=== PATIENT | female | born 1985 | race Caucasian/White ===

== ENCOUNTER 2016-12-12 09:00 | Emergency (ER) | payer OTHER ==
[~2016-12-12] VITALS: Ht 167.6 cm; Wt 59.8 kg
[~2016-12-12 09:00] MED LIST: ONDA4TAB10 SL
[2016-12-12 09:09] VITALS: TEMP 36.7; Ht 167.6 cm; Wt 59.8 kg
--- NOTE | 2016-12-12 10:54 | DIAGNOSTIC IMAGING REPORT ---
CERVICAL SPINE CT CT DOSE: 138.97 mGy.cm HISTORY: Neck pain w/ radiculopathy TECHNIQUE: Multiaxial CT images of the cervical spine were performed and reformatted in the sagittal and coronal plane without the use of contrast. COMPARISON: None. FINDINGS: Mild dextroscoliosis. This could be positional. No pneumothorax. Prevertebral soft tissues and the C1-C2 interval are intact. Reversal of the normal lordotic curvature. Mild disc space narrowing at C4-C5 and C5-C6 with tiny endplate osteophytes. Tiny ossific density anterior to the C6 inferior endplate is likely chronic. Suboptimal evaluation of the central canal due to the CT technique. There appears to be small broad-based posterior disc bulge at C4-C5 without significant central canal narrowing. There is also small broad-based posterior disc bulge at C5-C6 with a small left paracentral focal disc protrusion. This likely results in mild left-sided central canal narrowing. There is also also mild left-sided neural foraminal narrowing at this level. IMPRESSION: 1. No fractures within the cervical spine. 2. Reversal of the normal lordotic curvature. 3. Mild dextroscoliosis. 4. Degenerative changes at C4-C5 and C5-C6 as described above. Electronically signed by: Chong Ny M.D. 12/12/2016 10:53 AM Dictated Date/Time: 12/12/2016 10:47 AM
[2016-12-12 11:20] VITALS: BP 109/92; PULSE 90; O2SAT 98
[2016-12-12] MEDS ORDERED: CYCL10TA6 PO (12:08)
--- NOTE | 2016-12-12 12:35 | EMERGENCY ROOM VISIT NOTE ---
History First contact with patient: 09:28 Chief Complaint: NECK PAIN Stated Complaint: NECK PAIN,FATIGUE,MIGRAINES, SHOULDER AND BACK KAYLA History of Present Illness The patient is a 31 year old female who presents to the Emergency Room with complaints of intermittently and chronic neck pain. The patient reports that she also has a headache, fatigue and upper shoulder/back pain. The patient reports a prior history of Lyme's disease. However, she has had neck pain for a long period of time. She has not contacted her family doctor regarding her current symptoms. She denies any fevers or chills, blurred vision or headaches. She does occasionally have visual disturbances. She did have a recent MRI of the brain that was normal. She denies any recent trauma to her neck, and rates her discomfort a 6 out of 10. Review of Systems 10 system review was performed and was negative except for pertinent positives and negatives as indicated in history of present illness Past Medical/Surgical History Medical Problems: (1) Anxiety (2) Closed head injury (3) Foot pain (4) Hx of Lyme disease (5) Pelvic pain (6) PTSD (post-traumatic stress disorder) Family History Cancer Diabetes mellitus Social History Smoking Status: Never Smoker Alcohol Use: none Drug Use: none Marital Status: single Housing Status: lives with family Occupation Status: employed Current/Historical Medications Scheduled PRN Cyclobenzaprine Hcl (Flexeril), 10 MG PO TID PRN for spasm Allergies Coded Allergies: POLLEN (Unverified Allergy, Intermediate, RUNNY NOSE, ITCHY EYES, SNEEZING , 12/12/16) Doxycycline (Verified Allergy, Unknown, vomiting, 12/12/16) Physical Exam Vital Signs Date Time Temp Pulse Resp B/P Pulse Ox O2 Delivery O2 Flow Rate FiO2 12/12/16 11:20 90 16 109/92 98 Room Air 12/12/16 09:09 36.7 100 18 126/86 97 Room Air Physical Exam CONSTITUTIONAL: Healthy and well nourished. Alert and oriented X 3 with positive affect. Patient does not appear in any acute distress. HEENT: Normocephalic, atraumatic. Pupils equal, round and reactive. Ears and nares are clear. No rhinorrhea. No scleral icterus or conjunctival injection/ pallor. No subconjunctival hemorrhage. NECK: Examination shows limited range of motion secondary to pain. She has tenderness to palpation through the paraspinous muscles, left worse than right. No JVD or carotid bruits. RESPIRATORY: Clear to auscultation bilaterally with no wheezing, crackles, rhonchi or stridor. CARDIOVASCULAR: Regular rate and rhythm with no murmurs, rubs or gallops. GASTROINTESTINAL: Bowel sounds present in all quadrants. Soft and nontender to palpation. MUSCULOSKELETAL: Examination shows rigidity and tenderness to palpation of the upper trapezius muscles bilaterally, left worse than right. Full range of motion of the shoulders without discomfort. No focal tenderness to palpation through the intrascapular region or central thoracic spine. Equal hand urban anthropologist bilaterally. Distal pulses are intact. INTEGUMENTARY: No rash or other significant dermatologic conditions noted. NEUROLOGIC: Cranial nerves II-XII grossly intact. No focal neurologic deficits noted. Upper extremities are sensory intact. Medical Decision & Procedures ER Provider Diagnostic Interpretation: Noncontrast CT of the neck does not show any acute fractures. She does have mild broad-based disc bulging at C4-5 and C5-6 with a small left paracentral focal disc protrusion at the C5-6 level. Cervical lordosis reversal is also noted. Radiologist report is as follows: CERVICAL SPINE CT CT DOSE: 138.97 mGy.cm HISTORY: Neck pain w/ radiculopathy TECHNIQUE: Multiaxial CT images of the cervical spine were performed and reformatted in the sagittal and coronal plane without the use of contrast. COMPARISON: None. FINDINGS: Mild dextroscoliosis. This could be positional. No pneumothorax. Prevertebral soft tissues and the C1-C2 interval are intact. Reversal of the normal lordotic curvature. Mild disc space narrowing at C4-C5 and C5-C6 with tiny endplate osteophytes. Tiny ossific density anterior to the C6 inferior endplate is likely chronic. Suboptimal evaluation of the central canal due to the CT technique. There appears to be small broad-based posterior disc bulge at C4-C5 without significant central canal narrowing. There is also small broad-based posterior disc bulge at C5-C6 with a small left paracentral focal disc protrusion. This likely results in mild left-sided central canal narrowing. There is also also mild left-sided neural foraminal narrowing at this level. IMPRESSION: 1. No fractures within the cervical spine. 2. Reversal of the normal lordotic curvature. 3. Mild dextroscoliosis. 4. Degenerative changes at C4-C5 and C5-C6 as described above. ED Course Patient history and physical exam were performed. Nurse's notes were reviewed. The patient refused any analgesics while in the emergency department. Noncontrast CT of the neck shows degenerative changes as indicated above, and cervical lordotic reversal. The patient was advised that her neck pain and headache is likely from her neck. I did encourage her to follow-up with her family doctor for further reevaluation, possibly PT referral. The patient was provided a prescription for Flexeril. The patient reports that she does not want any drowsy medications, however would like to take it at nighttime. She was encouraged to perform modalities on the neck, and try to sleep on her back with a soft towel wrapped around the neck for support. She was encouraged to discuss further follow-up of her weakness with her family doctor as well. The patient was happy with plan of care, voiced understanding of all discharge instructions, refused any analgesics while in the emergency department, and rated her pain a 3 out of 10 at the conclusion of my exam. Medical Decision Impression Primary Impression: Neck pain Additional Impression: Cervicogenic headache Departure Information Prescriptions Cyclobenzaprine Hcl (FLEXERIL) 10 Mg Tab 10 MG PO TID Y for spasm, #15 TAB Prov: Jose Roblero PA 12/12/16 Referrals Yannick Fernandez M.D. (PCP) Forms WORK / SCHOOL INSTRUCTIONS, HOME CARE DOCUMENTATION FORM, IMPORTANT VISIT INFORMATION Patient Instructions My [facility] Problem Qualifiers
== END 2016-12-12 12:17 | disposition home or self-care (01) ==
LOC: C.EDB 09:02
DX: M54.2 Cervicalgia (principal); R51 Headache; F41.9 Anxiety disorder, unspecified; Z86.19 Personal history of other infectious and parasitic diseases; Z87.828 Personal history of other (healed) physical injury and trauma; Z88.3 Allergy status to other anti-infective agents; Z91.09 Other allergy status, other than to drugs and biological substances; Z80.9 Family history of malignant neoplasm, unspecified; Z83.3 Family history of diabetes mellitus

== ENCOUNTER 2017-02-02 09:56 | Emergency (ER) | payer OTHER ==
[~2017-02-02] VITALS: Ht 167.6 cm; Wt 60.0 kg
[2017-02-02 10:01] VITALS: TEMP 36.6; Ht 167.6 cm; Wt 60.0 kg
[2017-02-02] MEDS ORDERED: SODIUM CHLORIDE 0.9% 1000ML 1,000 ML IV STA (10:25)
[2017-02-02] MEDS ORDERED: ONDANSETRON INJ 2 MG/ML 2 ML VIAL IV STA ×2 (10:25→11:55)
[2017-02-02] MEDS ORDERED: HYOSCYAMINE SULFATE 0.125 MG SL TAB SL STA (10:25)
[2017-02-02 10:46] LABS: BASO % 0.4 %; BASO ABS # 0.05 K/uL (0-0.2); COMPLETE YES; EOS % 0.5 %; HEMATOCRIT 44.1 % (37-47); IG% 0.3 %; LYMPH % 12.3 %; LYMPH ABS # 1.39 K/uL (1.2-3.4); MEAN CELL VOLUME 86.3 fL (80-100); MEAN CORPUSCULAR HEMOGLOBIN 28.6 pg (25-34); MEAN CORPUSCULAR HGB CONC 33.1 g/dl (32-36); MEAN PLATELET VOLUME 11.4 fL (7.4-10.4); MONO % 5.2 %; NEUT % 81.3 %; PLATELET COUNT 253 K/uL (130-400); RED BLOOD COUNT 5.11 M/uL (4.2-5.4); WHITE BLOOD COUNT 11.26 K/uL (4.8-10.8)
[2017-02-02 11:01] LABS: BUN/CREATININE RATIO 12.6 (10-20); CALCIUM 9.3 mg/dl (8.5-10.1); CREATININE 0.7 mg/dl (0.60-1.20); POTASSIUM 3.3 mmol/L (3.5-5.1)
--- NOTE | 2017-02-02 11:33 | DIAGNOSTIC IMAGING REPORT ---
ABDOMEN 2VIEW W/PA CHEST RTN CLINICAL HISTORY: eval for free air COMPARISON STUDY: No previous studies for comparison. FINDINGS: The soft tissues, psoas shadows, renal outlines and intestinal gas pattern appear normal. There is no evidence for bowel obstruction. There is no evidence for free intraperitoneal air. No abnormal abdominal calcifications are seen. A frontal view of the chest was performed and is unremarkable. IMPRESSION: Normal study. The above report was generated using voice recognition software. It may contain grammatical, syntax or spelling errors. Electronically signed by: Bill Ny M.D. 02/02/2017 11:32 AM Dictated Date/Time: 02/02/2017 11:31 AM
[2017-02-02 12:16] LABS: URINE APPEARANCE CLEAR (CLEAR); URINE BILIRUBIN NEG (NEG); URINE COLOR YELLOW; URINE NITRITE NEG (NEG); URINE PH 6.5 (4.5-7.5); URINE SPECIFIC GRAVITY 1.018 (1.000-1.030); UROBILINOGEN NEG (NEG)
[2017-02-02 12:18] LABS: MANUAL MICROSCOPIC REQUIRED? NO; REVIEW REQ? NO
[2017-02-02] MEDS ORDERED: ONDA4TAB10 SL (12:20)
[2017-02-02 12:33] VITALS: BP 101/74; PULSE 84; O2SAT 99
--- NOTE | 2017-02-02 16:22 | EMERGENCY ROOM VISIT NOTE ---
History Report prepared by Jefry: Josy Duran Under the Supervision of: Dr. Bruno Wu M.D. First contact with patient: 10:11 Chief Complaint: VOMITING Stated Complaint: DIARRHEA,YELLOW BILE,BLACK SPECKS IN VOMIT Nursing Triage Summary: decreased po intake and diarrhea this past week vomitted yellow bile and black specks c/o intestinal pain and bloating History of Present Illness The patient is a 31 year old female who presents to the Emergency Room with complaints of persistent abdominal pain that began a week and a half ago. She currently rates her discomfort as a 4/10 in severity. The patient describes her discomfort as a pressure in her lower abdomen. She states that for the past year she has been dealing with diarrhea, nausea, abdominal cramping, abdominal bloating, and vomiting. The patient states that she is experiencing all these symptoms today, but states that her pain today is much worse than before. She states that her doctor has diagnosed her with IBS D. The patient states that today she vomited yellow bile with black specks. She states that she wakes up each morning sweaty, but denies any fever. The patient reports issues with bacterial vaginosis and yeast infection, stating that she has been placed on control to deal with those issues by her teller manager. She states that she has been noticing pressure with urination, but denies any urinary burning. The patient states that she does not typically drink, but states that she took five shots last evening. She states that she drank the alcohol to help her sleep. The patient denies any heavy use of NSAIDS. She states that she has been evaluated by multiple providers for her symptoms but does not think she has seen a tape deck installer. The patient denies any chance of due to abstinence. She denies any previous colonoscopy. The patient reports a family history of cancer. She denies any known history of gastric ulcers. The patient denies any previous abdominal surgeries. She denies any melena or hematochezia. The patient states that some of her symptoms are anxiety induced. Source of History: patient Onset: a week and a half ago Position: abdomen Symptom Intensity: 4/10 Quality: pressure Timing: other (persistent) Associated Symptoms: + nausea, + vomiting, + diarrhea, No fevers, No melena , No hematochezia Note: Associated symptoms: abdominal cramping, abdominal bloating Review of Systems See HPI for pertinent positives & negatives. A total of 10 systems reviewed and were otherwise negative. Past Medical & Surgical Medical Problems: (1) Anxiety (2) Closed head injury (3) Foot pain (4) Hx of Lyme disease (5) Pelvic pain (6) PTSD (post-traumatic stress disorder) Family History Cancer Diabetes mellitus Social History Smoking Status: Never Smoker Alcohol Use: none Drug Use: none Marital Status: single Housing Status: lives with family Occupation Status: employed Current/Historical Medications Scheduled Ondasetron Odt (Zofran Odt), 4 MG SL Q6H Allergies Coded Allergies: POLLEN (Unverified Allergy, Intermediate, RUNNY NOSE, ITCHY EYES, SNEEZING , 02/02/17) Doxycycline (Verified Allergy, Unknown, vomiting, 02/02/17) Physical Exam Vital Signs Date Time Temp Pulse Resp B/P (MAP) Pulse Ox O2 Delivery O2 Flow Rate FiO2 02/02/17 12:33 84 16 101/74 99 Room Air 02/02/17 12:00 90 16 99/76 98 Room Air 02/02/17 10:01 36.6 102 18 114/80 100 Room Air Physical Exam Constitutional: Vital signs reviewed. Eyes: Pupils are equal round reactive to light. Conjunctiva are noninjected. ENT: Pharynx is minimally erythematous without exudate. Mucous membranes are moist. Neck supple without meningeal signs. Respiratory: Clear to auscultation bilaterally. Breath sounds are equal bilaterally. Cardiovascular: Regular rate and rhythm. No rubs or gallops. GI: Mild epigastric tenderness and suprapubic tenderness. Soft, nondistended. Bowel sounds are present. Rectal: Guaiac negative brown stool. Musculoskeletal: No peripheral edema. No CVA tenderness. Integumentary: No cyanosis. Neurological: The patient is awake and alert. No focal deficits. Psychiatric: Normal affect. Medical Decision & Procedures ER Provider Diagnostic Interpretation: X-ray results as stated below per interpretation by me and the radiologist: ABDOMEN 2VIEW W/PA CHEST RTN CLINICAL HISTORY: eval for free air COMPARISON STUDY: No previous studies for comparison. FINDINGS: The soft tissues, psoas shadows, renal outlines and intestinal gas pattern appear normal. There is no evidence for bowel obstruction. There is no evidence for free intraperitoneal air. No abnormal abdominal calcifications are seen. A frontal view of the chest was performed and is unremarkable. IMPRESSION: Normal study. The above report was generated using voice recognition software. It may contain grammatical, syntax or spelling errors. Electronically signed by: Bill Ny M.D. 02/02/2017 11:32 AM Dictated Date/Time: 02/02/2017 11:31 AM Laboratory Results 02/02/17 10:30 Red Blood Count 5.11, Mean Corpuscular Volume 86.3, Mean Corpuscular Hemoglobin 28.6, Mean Corpuscular Hemoglobin Concent 33.1, Mean Platelet Volume 11.4, Neutrophils (%) (Auto) 81.3, Lymphocytes (%) (Auto) 12.3, Monocytes (%) (Auto) 5.2, Eosinophils (%) (Auto) 0.5, Basophils (%) (Auto) 0.4, Neutrophils # (Auto) 9.15, Lymphocytes # (Auto) 1.39, Monocytes # (Auto) 0.58, Eosinophils # (Auto) 0.06, Basophils # (Auto) 0.05 02/02/17 10:30 Test 02/02/17 10:30 02/02/17 11:55 White Blood Count 11.26 K/uL (4.8-10.8) Red Blood Count 5.11 M/uL (4.2-5.4) Hemoglobin 14.6 g/dL (12.0-16.0) Hematocrit 44.1 % (37-47) Mean Corpuscular Volume 86.3 fL (80-100) Mean Corpuscular Hemoglobin 28.6 pg (25-34) Mean Corpuscular Hemoglobin Concent 33.1 g/dl (32-36) Platelet Count 253 K/uL (130-400) Mean Platelet Volume 11.4 fL (7.4-10.4) Neutrophils (%) (Auto) 81.3 % Lymphocytes (%) (Auto) 12.3 % Monocytes (%) (Auto) 5.2 % Eosinophils (%) (Auto) 0.5 % Basophils (%) (Auto) 0.4 % Neutrophils # (Auto) 9.15 K/uL (1.4-6.5) Lymphocytes # (Auto) 1.39 K/uL (1.2-3.4) Monocytes # (Auto) 0.58 K/uL (0.11-0.59) Eosinophils # (Auto) 0.06 K/uL (0-0.5) Basophils # (Auto) 0.05 K/uL (0-0.2) RDW Standard Deviation 43.0 fL (36.4-46.3) RDW Coefficient of Variation 13.5 % (11.5-14.5) Immature Granulocyte % (Auto) 0.3 % Immature Granulocyte # (Auto) 0.03 K/uL (0.00-0.02) Anion Gap 8.0 mmol/L (3-11) Est Creatinine Clear Calc Drug Dose 108.9 ml/min Estimated GFR () 133.8 Estimated GFR (Non- 115.5 BUN/Creatinine Ratio 12.6 (10-20) Calcium Level 9.3 mg/dl (8.5-10.1) Total Bilirubin 0.4 mg/dl (0.2-1) Direct Bilirubin 0.1 mg/dl (0-0.2) Aspartate Amino Transf (AST/SGOT) 20 U/L (15-37) Alanine Aminotransferase (ALT/SGPT) 27 U/L (12-78) Alkaline Phosphatase 50 U/L (45-117) Total Protein 8.7 gm/dl (6.4-8.2) Albumin 4.0 gm/dl (3.4-5.0) Lipase 87 U/L (73-393) Urine Color YELLOW Urine Appearance CLEAR (CLEAR) Urine pH 6.5 (4.5-7.5) Urine Specific [place] 1.018 (1.000-1.030) Urine Protein NEG (NEG) Urine Glucose (UA) NEG (NEG) Urine Ketones 2+ (NEG) Urine Occult Blood NEG (NEG) Urine Nitrite NEG (NEG) Urine Bilirubin NEG (NEG) Urine Urobilinogen NEG (NEG) Urine Leukocyte Esterase NEG (NEG) Urine Test NEG (NEG) Laboratory results as reviewed by me. Medications Administered Medications (Trade) Dose Ordered Sig/Miguelito Route Start Time Stop Time Status Last Admin Dose Admin Ondansetron HCl (Zofran Inj) 4 mg NOW STAT IV 02/02/17 10:25 02/02/17 10:28 DC 02/02/17 10:39 4 MG Hyoscyamine Sulfate (Levsin Tab) 0.125 mg NOW STAT SL 02/02/17 10:25 02/02/17 10:28 DC 02/02/17 10:39 0.125 MG Sodium Chloride 1,000 ml @ 999 mls/hr Q1H1M STAT IV 02/02/17 10:25 02/02/17 11:25 DC 02/02/17 10:25 999 MLS/HR Ondansetron HCl (Zofran Inj) 4 mg NOW STAT IV 02/02/17 11:55 02/02/17 11:56 DC 02/02/17 11:55 4 MG ED Course 1012: The patient was evaluated in room B4B. A complete history and physical exam was performed. 1025: Ordered Sodium Chloride 1000 ml @ 999 mls/hr IV, Levsin Tab 0.125 mg SL, Zofran Inj 4 mg IV. 1155: I reevaluated the patient and she is still nauseated. Ordered Zofran Inj 4 mg IV. 1205: I reevaluated the patient and she is resting. I discussed the exam findings with her. We discussed the possibility of a GI lavage to check for bleeding. After discussion, we decided there is no indication for it. I discussed the treatment plan with her and recommended follow up with a tape deck installer and her PCP for further evaluation of her chronic symptoms. She verbalized complete understanding and agreement. She will be ready to go home shortly. Medical Decision This is a 31-year-old female presents with abdominal pain and vomiting with diarrhea. Differential diagnosis includes inflammatory bowel disease, irritable bowel syndrome, food intolerance, celiac disease, lactose intolerance , dehydration, GI bleed. I did perform a limited focused review of portions of the patient's old chart on the electronic medical record. The patient was seen here for abdominal pain and diarrhea in June. She had a CT scan of her abdomen and pelvis that was unremarkable. Blood Pressure Screening: Patient was found to have an elevated blood pressure and was referred to their primary doctor for recheck and further treatment. Medication Reconciliation: I attest that I have personally reviewed the patient' s current medication list. I did evaluate the patient as noted above. The patient is presenting with vomiting and increased abdominal pain. She states that she has a history of chronic abdominal pain and diarrhea for over a year. She was diagnosed with IBS D. She threw up some black specks this morning and became concerned. She does state that she drank 5 shots of hard liquor yesterday which is unusual for her. She did not see any gross blood and stated that most of her vomitus was yellow. She has had not had any rectal bleeding or black stools. IV access was established. I did order and personally review the patient's abdominal and chest x-rays as described above. I did order and review the patient's blood work as noted in the electronic medical record. She has mild hypokalemia which may be secondary to her chronic diarrhea. Her white blood cell count is slightly elevated but this is a nonspecific finding intensity found with vomiting. I did perform a rectal examination which showed guaiac negative brown stool. She is not anemic. Urinalysis shows some ketones but is otherwise negative. I did treat the patient with normal saline IV and Zofran IV. She was also given Levsin. I did reassess the patient. She states she is feeling better. I did discuss her test results with her. I did not have a high suspicion for a upper GI bleed at this time. I did offer to perform gastric lavage to check for hematemesis but she declined. I did feel this was reasonable as I did not have a high suspicion. She was advised to follow closely with her doctor for further evaluation and talk to him or her about GI referral for further evaluation for other etiologies of her abdominal pain such as food intolerance, celiac disease or inflammatory bowel disease. She was discharged in good condition. She was given a prescription for Zofran. Impression Primary Impression: Vomiting Additional Impressions: Chronic diarrhea Lower abdominal pain Scribe Attestation The scribe's documentation has been prepared under my direct and personally reviewed by me in its entirety. I confirm that the note above accurately reflects all work, treatment, procedures, and medical decision making performed by me. Departure Information Dispostion Home / Self-Care Prescriptions Ondasetron Odt (ZOFRAN ODT) 4 Mg Tab 4 MG SL Q6H for Nausea, #10 TAB Prov: Bruno Wu M.D. 02/02/17 Referrals Yannick Fernandez M.D. (PCP) Forms HOME CARE DOCUMENTATION FORM, IMPORTANT VISIT INFORMATION, Work Instructions Patient Instructions ED Abdominal Pain Unkn Cause, ED Dehydration, My [facility] Additional Instructions You have been examined and treated today on an emergency basis only. This is not a substitute for, or an effort to provide, complete comprehensive medical care. It is impossible to recognize and treat all injuries or illnesses in a single emergency department visit. It is therefore important that you follow up closely with your physician for referral to a tape deck installer. Call as soon as possible for an appointment. Return for worsening symptoms or if you develop black or tarry stools, rectal bleeding, lightheadedness or any other concerning symptoms Problem Qualifiers Primary Impression: Vomiting Vomiting type: bilious vomiting Nausea presence: with nausea Qualified Codes: R11.14 - Bilious vomiting
== END 2017-02-02 12:35 | disposition home or self-care (01) ==
LOC: C.EDB 09:57
DX: R11.14 Bilious vomiting (principal); K52.9 Noninfective gastroenteritis and colitis, unspecified; R10.30 Lower abdominal pain, unspecified; Z83.3 Family history of diabetes mellitus

== ENCOUNTER 2017-05-07 01:13 | Emergency (ER) | payer OTHER ==
[~2017-05-07] VITALS: Ht 167.6 cm; Wt 59.5 kg
[2017-05-07 01:16] VITALS: TEMP 36.7; Ht 167.6 cm; Wt 59.5 kg
--- NOTE | 2017-05-07 01:55 | EMERGENCY ROOM VISIT NOTE ---
History Report prepared by Jefry: Edwin Schmidt Under the Supervision of: Dr. Gurdeep Juarez M.D. First contact with patient: 01:21 Chief Complaint: ANKLE PAIN Stated Complaint: SHOOTING/THROBBING PAIN IN LEFT ANKLE History of Present Illness The patient is a 32 year old female who presents to the Emergency Room with complaints of constant left ankle pain occurring earlier in the day. The patient states that she was running around earlier, and she tripped on some mulch. She additionally states that she has pain in the back of her calf. She states that she did not feel a pop, and she has a history of a sprained left ankle. Source of History: patient Onset: earlier today Position: ankle (left) Timing: constant Note: Associated symptoms: left calf pain Review of Systems See HPI for pertinent positives & negatives. A total of 6 systems reviewed and were otherwise negative. Past Medical & Surgical Medical Problems: (1) Anxiety (2) Closed head injury (3) Foot pain (4) Hx of Lyme disease (5) Pelvic pain (6) PTSD (post-traumatic stress disorder) Family History Cancer Diabetes mellitus Social History Smoking Status: Never Smoker Alcohol Use: none Drug Use: none Marital Status: single Housing Status: lives with family Occupation Status: employed Current/Historical Medications No Active Prescriptions or Reported Meds Allergies Coded Allergies: POLLEN (Unverified Allergy, Intermediate, RUNNY NOSE, ITCHY EYES, SNEEZING , 05/07/17) Doxycycline (Verified Allergy, Unknown, vomiting, 05/07/17) Physical Exam Vital Signs Date Time Temp Pulse Resp B/P (MAP) Pulse Ox O2 Delivery O2 Flow Rate FiO2 05/07/17 02:36 82 18 109/74 97 05/07/17 01:16 36.7 112 18 115/72 98 Room Air Physical Exam GENERAL: Patient is well appearing and in no acute distress. HEENT: No acute trauma, normocephalic atraumatic, mucous membranes moist, no nasal congestion, no scleral icterus. NECK: No stridor, no adenopathy, no meningismus, trachea is midline. EXTREMITIES: Tenderness to palpation over the left lateral malleolus and the left base of the 5th metatarsal. Mild swelling of these locations. Distal NV intact. Mild pain with range of motion. NEUROLOGIC: Alert and oriented, no acute motor or sensory deficits, no focal weakness, cranial nerves grossly intact. SKIN: No rash, no jaundice, no diaphoresis. Medical Decision & Procedures ER Provider Diagnostic Interpretation: X ray results are stated below per my interpretation: Three View Left Ankle: No fracture or dislocation Three View Left Foot. No fracture or dislocation ED Course 0121: The patient was evaluated in room B8. A complete history and physical exam was performed. 0154: On reassessment, the patient admitted to the nursing staff that she took some methadone earlier for the pain. 0157: Reevaluated the patient. Discussed results and discharge instructions: She verbalized understanding and agreement. The patient is ready for discharge. Medical Decision Differential diagnoses include: fracture, dislocation, and sprain. 32 yr old female with twisted ankle several hours ago. Admits used dose of Methadone from friend but she does not exhibit evidence of being under influence. TTP over lateral malleolus and base 5th metatarsal. No fracture appreciated. Continue RICE and already has crutches. Discussed Tyl/Motrin. Patient also upset about fighting for child welfare director from daughter's father. Case management in to talk to her and help with resources. Medication Reconcilliation Current Medication List: was personally reviewed by me Blood Pressure Screening Patient's blood pressure: Normal blood pressure Impression Primary Impression: Left ankle sprain Scribe Attestation The scribe's documentation has been prepared under my direction and personally reviewed by me in its entirety. I confirm that the note above accurately reflects all work, treatment, procedures, and medical decision making performed by me. Departure Information Dispostion Home / Self-Care Prescriptions No Active Prescriptions or Reported Meds Referrals Yannick Fernandez M.D. (PCP) Forms HOME CARE DOCUMENTATION FORM, IMPORTANT VISIT INFORMATION, Work Instructions Patient Instructions ED Sprain Ankle, [facility] Problem Qualifiers Primary Impression: Left ankle sprain Encounter type: initial encounter Involved ligament of ankle: unspecified ligament Qualified Codes: S93.402A - Sprain of unspecified ligament of left ankle, initial encounter
[2017-05-07 02:36] VITALS: BP 109/74; PULSE 82; O2SAT 97
--- NOTE | 2017-05-07 06:50 | DIAGNOSTIC IMAGING REPORT ---
L FOOT MIN 3 VIEWS ROUTINE, L ANKLE MIN 3 VIEWS ROUTINE HISTORY: 32 years-old Female ttp over base 5th metatarsal s/p rolling ankle acute pain of the fifth metatarsal status post injury COMPARISON: Left foot radiographs 04/27/2015 TECHNIQUE: 3 views of the left foot and 3 views of the left ankle FINDINGS: FOOT: No acute fracture, dislocation, stress fracture or significant degenerative changes. No opaque foreign body. ANKLE: Ankle mortise is well-maintained and anatomically positioned without acute fracture or dislocation. No osteochondral defect. Mild soft tissue swelling about the ankle with small joint effusion. IMPRESSION: Mild soft tissue swelling of the ankle without acute fracture or dislocation of the left foot or ankle. The above report was generated using voice recognition software. It may contain grammatical, syntax or spelling errors. Electronically signed by: Troy Mahoney M.D. 05/07/2017 6:49 AM Dictated Date/Time: 05/07/2017 6:47 AM
== END 2017-05-07 02:37 | disposition home or self-care (01) ==
LOC: C.EDB 01:14
DX: S93.402A Sprain of unspecified ligament of left ankle, initial encounter (principal); W01.0XXA Fall on same level from slipping, tripping and stumbling without subsequent striking against object, initial encounter; Y93.02 Activity, running; F41.9 Anxiety disorder, unspecified; Z87.828 Personal history of other (healed) physical injury and trauma; Z86.19 Personal history of other infectious and parasitic diseases; Z88.8 Allergy status to other drugs, medicaments and biological substances; Z91.09 Other allergy status, other than to drugs and biological substances; Z80.9 Family history of malignant neoplasm, unspecified; Z83.3 Family history of diabetes mellitus